=== PATIENT | female | born 1975 | race Asian ===

== ENCOUNTER 2021-01-27 21:23 | Emergency (ER) | payer SELFPAY ==
[~2021-01-27] VITALS: Ht 149.9 cm; Wt 68.2 kg
[~2021-01-27 21:23] MED LIST: NO MEDS
[2021-01-27 21:46] VITALS: BP 216/104
[2021-01-27] MEDS ORDERED: ACETAMINOPHEN 500 MG TABLET PO ONE (23:15)
[2021-01-27] MEDS ORDERED: LIDOCAINE 5% TRANSDERMAL PATCH TD ONE (23:15)
== END 2021-01-27 23:34 | disposition home or self-care (01) ==
LOC: EMS 21:28
DX: R51.9 Headache, unspecified (principal); R42 Dizziness and giddiness; I10 Essential (primary) hypertension; V49.9XXA Car occupant (driver) (passenger) injured in unspecified traffic accident, initial encounter; Y93.89 Activity, other specified; Y92.89 Other specified places as the place of occurrence of the external cause; Y99.8 Other external cause status
CPT/HCPCS: 99283

== ENCOUNTER 2023-02-12 18:41 | Inpatient (IN) | payer SELFPAY ==
[~2023-02-12] VITALS: Ht 149.9 cm; Wt 66.2 kg
[2023-02-12] MEDS ORDERED: inhaler IH (18:42)
[2023-02-12] MEDS ORDERED: htn PO (18:42)
[2023-02-12] MEDS ORDERED: MethylPREDNISolone SOD SUCC 125 MG/2 ML VIAL IVP ONE (19:00)
[2023-02-12] MEDS ORDERED: IPRATROPIUM BROMIDE 0.5 MG/2.5 ML NEB SOLUTION NEB ONE (19:00)
[2023-02-12] MEDS ORDERED: AMLO5TAB66 PO (19:00)
[2023-02-12] MEDS ORDERED: ALBU18HF12 IH (19:00)
[2023-02-12] MEDS ORDERED: ALBUTEROL SULFATE 2.5 MG/0.5 ML NEB SOLUTION NEB ONE ×2 (19:00)
[2023-02-12 19:05] VITALS: PULSE 98; PULSE 99; RESP 22; RESP 23; O2SAT 98; O2SAT 99
[2023-02-12 19:19] LABS: BASOPHILS % (AUTO) 1.7 % (0.0-2.0); EOSINOPHILS % (AUTO) 0.4 % (1.0-6.0); HEMATOCRIT 36.6 % (36-46); HEMOGLOBIN 11.5 g/dL (12.0-16.0); LYMPHOCYTES % (AUTO) 36.8 % (22.0-44.0); MEAN CORPUSCULAR HEMOGLOBIN 21.3 pg (26.0-34.0); MEAN CORPUSCULAR HGB CONC 31.3 G/dL (31.0-37.0); MEAN CORPUSCULAR VOLUME 68 fL (80-100); MONOCYTES # (AUTO) 0.7 K/uL (0.1-1.0); MONOCYTES % (AUTO) 8.6 % (2.0-9.0); NEUTROPHILS # (AUTO) 4.3 K/uL (1.8-7.7); NEUTROPHILS % (AUTO) 52.5 % (40.0-70.0); PLATELET COUNT (AUTO) 598 K/uL (150-450); RED BLOOD CELL COUNT(AUTO) 5.38 MIL/uL (4.00-5.20); RED CELL DISTRIBUTION WIDTH 20.5 % (11.5-14.5)
[2023-02-12 19:37] LABS: ALANINE AMINOTRANSFERASE 20 U/L (12-78); ALKALINE PHOSPHATASE 81 U/L (46-116); ANION GAP 16 mmol/L (8-16); ASPARTATE AMINOTRANSFERASE 23 U/L (15-37); BILIRUBIN,TOTAL 0.3 mg/dL (0.1-1.0); CALCIUM, TOTAL 9.2 mg/dL (8.8-10.5); CARBON DIOXIDE 23 mmol/L (22-29); CHLORIDE 101 mmol/L (98-107); CREATININE 0.81 mg/dL (0.60-1.30); GLOMERULAR FILTR. RATE CALC > 60 mL/min (>60); GLUCOSE,RANDOM 114 mg/dL (70-110); SODIUM SERUM 140 mmol/L (136-145); TOTAL PROTEIN, SERUM 8.6 g/dL (6.4-8.2)
[2023-02-12 19:38] LABS: B-TYPE NATRIURETIC PEPTIDE 24 pg/mL (0-100)
[2023-02-12 19:41] LABS: POTASSIUM 2.8 mmol/L (3.5-5.1)
[2023-02-12] MEDS ORDERED: OXYGEN THERAPY IH SCH (20:00)
[2023-02-12] MEDS ORDERED: POTASSIUM CHLORIDE 10% 40 MEQ/30 ML LIQUID UDCUP PO ONE ×2 (20:00→20:30)
[2023-02-12 20:27] LABS: PLATELET MORPHOLOGY COMMENT LARGE PLTS PRESENT
[2023-02-12] MEDS ORDERED: MAGNESIUM SULFATE 4 GM/WATER 100 ML IV PRN (21:15)
[2023-02-12] MEDS ORDERED: RINGERS SOLUTION,LACTATED 1,000 ML IV ONE (21:15)
[2023-02-12] MEDS ORDERED: POTASSIUM CHL 10 MEQ/WATER 50 ML IV PRN (21:15)
[2023-02-12] MEDS ORDERED: ONDANSETRON HCL 4 MG/2 ML VIAL IVP PRN (21:15)
[2023-02-12] MEDS ORDERED: MAGNESIUM SULFATE 2 GM/WATER 50 ML IV PRN (21:15)
[2023-02-12] MEDS ORDERED: MAGNESIUM OXIDE 400 MG TABLET PO PRN (21:15)
[2023-02-12] MEDS ORDERED: POTASSIUM CHLORIDE 20 MEQ ER TABLET PO PRN (21:15)
[2023-02-12] MEDS: NITROGLYCERIN 2% (1 GM=INCH) OINTMENT PACKET TP SCH (21:37)
[2023-02-12] MEDS: ALBUTEROL SULFATE 2.5 MG/0.5 ML NEB SOLUTION NEB PRN (21:54)
[2023-02-12] MEDS: IPRATROPIUM BROMIDE 0.5 MG/2.5 ML NEB SOLUTION NEB PRN (21:54)
[2023-02-12 21:57] VITALS: PULSE 110; RESP 18; O2SAT 93
[2023-02-12 22:13] LABS: COVID AG,FIA SOURCE NASOPHARYNGEAL
[2023-02-12 22:27] LABS: APPEARANCE,URINE CLEAR (CLEAR); BILIRUBIN,URINE NEGATIVE (NEGATIVE); GLUCOSE, URINE (UA) TRACE mg/dL (NEGATIVE); KETONES,URINE NEGATIVE (NEGATIVE); LEUKOCYTE ESTERASE ,URINE MODERATE (NEGATIVE); NITRATE,URINE NEGATIVE (NEGATIVE); OCCULT BLOOD,URINE SMALL (NEGATIVE); PROTEIN,URINE NEGATIVE (NEGATIVE); SPECIFIC GRAVITIY, URINE 1.005 (1.003-1.030); UROBILINOGEN,URINE <=1.0 mg/dL (<=1.0)
[2023-02-12 22:40] VITALS: BP 164/111; PULSE 121; RESP 20; TEMP 97.5
[2023-02-12 22:56] LABS: INFLUENZA TYPE A NEGATIVE FOR TYPE A (NEGATIVE); INFLUENZA TYPE B NEGATIVE FOR TYPE B (NEGATIVE)
[2023-02-12 23:18] LABS: BACTERIA,URINE Rare /HPF (None Seen)
[2023-02-12] MEDS: ACETAMINOPHEN 325 MG TABLET PO PRN (23:26)
[2023-02-13] VITALS (9 sets, daily range): BP systolic 120–178; BP diastolic 67–109; PULSE 87–110; RESP 16–20; TEMP 98–98.3; O2SAT 94–99
[2023-02-13] MEDS: HEPARIN SODIUM,PORCINE 5,000 UNITS/ML VIAL SQ SCH ×4 (00:39→23:46)
[2023-02-13] MEDS: NITROGLYCERIN 2% (1 GM=INCH) OINTMENT PACKET TP SCH ×4 (06:15→23:46)
[2023-02-13 07:48] LABS: ANION GAP 13 mmol/L (8-16); CARBON DIOXIDE 19 mmol/L (22-29); CHLORIDE 105 mmol/L (98-107); CREATININE 0.96 mg/dL (0.60-1.30); GLOMERULAR FILTR. RATE CALC > 60 mL/min (>60); GLUCOSE,RANDOM 242 mg/dL (70-110); POTASSIUM 3.8 mmol/L (3.5-5.1); SODIUM SERUM 137 mmol/L (136-145)
[2023-02-13] MEDS: DOCUSATE SODIUM 100 MG CAPSULE PO SCH ×2 (08:37→20:52)
[2023-02-13] MEDS: MethylPREDNISolone SOD SUCC 125 MG/2 ML VIAL IVP SCH (08:37)
[2023-02-13] MEDS: ACETAMINOPHEN 325 MG TABLET PO PRN ×2 (16:00→20:56)
[2023-02-13] MEDS: ALBUTEROL SULFATE 2.5 MG/0.5 ML NEB SOLUTION NEB PRN ×2 (16:04→19:30)
[2023-02-13] MEDS: IPRATROPIUM BROMIDE 0.5 MG/2.5 ML NEB SOLUTION NEB PRN ×2 (16:04→19:30)
[2023-02-13] MEDS: AmLODIPine BESYLATE 10 MG TABLET PO SCH (16:30)
[2023-02-13] MEDS: BENZONATATE 100 MG CAPSULE PO PRN (16:30)
[2023-02-14] VITALS (8 sets, daily range): BP systolic 119–140; BP diastolic 67–89; PULSE 84–101; RESP 16–20; TEMP 98–98.1; O2SAT 93–100
[2023-02-14] MEDS: ALBUTEROL SULFATE 2.5 MG/0.5 ML NEB SOLUTION NEB PRN ×2 (02:34→08:37)
[2023-02-14] MEDS: IPRATROPIUM BROMIDE 0.5 MG/2.5 ML NEB SOLUTION NEB PRN ×2 (02:34→08:37)
[2023-02-14] MEDS: NITROGLYCERIN 2% (1 GM=INCH) OINTMENT PACKET TP SCH (05:57)
[2023-02-14] MEDS: DOCUSATE SODIUM 100 MG CAPSULE PO SCH (09:11)
[2023-02-14] MEDS: MethylPREDNISolone SOD SUCC 125 MG/2 ML VIAL IVP SCH (09:11)
[2023-02-14] MEDS: AmLODIPine BESYLATE 10 MG TABLET PO SCH (09:11)
[2023-02-14] MEDS: HEPARIN SODIUM,PORCINE 5,000 UNITS/ML VIAL SQ SCH (09:11)
[2023-02-14] MEDS: BENZONATATE 100 MG CAPSULE PO PRN (09:11)
[2023-02-14] MEDS ORDERED: ALBU18HF12 IH (10:21)
[2023-02-14] MEDS ORDERED: AMLO-257 PO (10:22)
[2023-02-14] MEDS ORDERED: PRED-554 PO (10:24)
== END 2023-02-14 11:30 | disposition home or self-care (01) | DRG 203 ==
LOC: EMS 18:41 → 5S 21:42
PROVIDERS: ADMIT Internal Medicine; ATTEND Internal Medicine
DX: J45.902 Unspecified asthma with status asthmaticus (principal); E87.6 Hypokalemia; I10 Essential (primary) hypertension; Z20.822 Contact with and (suspected) exposure to COVID-19; D25.9 Leiomyoma of uterus, unspecified; R00.0 Tachycardia, unspecified; R73.9 Hyperglycemia, unspecified; Z90.49 Acquired absence of other specified parts of digestive tract; Z79.899 Other long term (current) drug therapy
CPT/HCPCS: 71045; 80048; 80053; 81001; 83735; 83880; 84484; 84703; 85025; 87086; 87186; 87804; 93005; 94060; 94640; 94644; 99291; J1644; J2930; J7120; 36415-L1; 36415-TC; J7613